=== PATIENT | male | born 1985 | race Caucasian/White ===

== ENCOUNTER 2017-12-16 10:48 | Emergency (ER) | payer SELFPAY ==
[2017-12-16] MEDS ORDERED: Ondansetron 4 MG/2 ML SDV IVPUSH ONE (11:09)
[2017-12-16] MEDS ORDERED: Ketorolac 30 MG/ML SDV IVPUSH ONE (11:09)
--- NOTE | 2017-12-16 11:34 | EDM.PDOC ---
ED HPI GENERAL MEDICAL PROBLEM - General Chief Complaint: Genitourinary Problem Stated Complaint: R) flank pain radiating to lower abd 7 out of 10 Time Seen by Provider: 12/16/17 11:20 Source of Information: Reports: Patient History Limitations: Reports: No Limitations - History of Present Illness INITIAL COMMENTS - FREE TEXT/NARRATIVE: Patient brought to ER by mother. Has had two day history of right flank pain. Developed nausea and emesis last evening which persisted overnight. No fevers/chills. No other pain complaints. No bowel movement for several days. Does not report feeling constipated. No hematuria. Has history of kidney stones but they have previously been located on left. Required surgical removal of the stones on two separate occasions. No other reported changes. Onset: Sudden Onset Date: 11/16/17 Duration: Day(s): (2), Getting Worse, Waxing/Waning Right Flank Pain Score (Numeric/FACES): 7 - Related Data Allergies Allergy/AdvReac Type Severity Reaction Status Date / Time No Known Allergies Allergy Verified 12/16/17 10:50 Home Meds: Home Meds Ketorolac Tromethamine 10 mg PO Q6HR PRN #15 tablet 12/16/17 [Rx] Tamsulosin [Tamsulosin 24 Hr] 0.4 mg PO DAILY #14 cap.er 12/16/17 [Rx] Past Medical History Gastrointestinal History: Reports: Chronic Diarrhea Genitourinary History: Reports: Renal Calculus Other Genitourinary History: due to have surgical intervention to remove kidney stones at the end of next month Psychiatric History: Reports: Other (See Below) (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 Denies use since end of 2016. History of canabis-related hyperemesis.) - Past Surgical History HEENT Surgical History: Reports: Other (See Below) Male Surgical History: Reports: Kidney Stone Extraction, Renal Calculus Social & Family History - Tobacco Use Smoking Status *Q: Current Every Day Smoker Packs/Tins Daily: 1 Smoking Cessation Information Provided To Patient: Patient Refused - Caffeine Use Caffeine Use: Reports: Coffee, Soda - Alcohol Use Alcohol Use History: Yes Alcohol Use Frequency: Socially Alcohol Use Comment: Intermittent use reported, only socially - Recreational Drug Use Recreational Drug Use: No Drug Use in Last 12 Months: Yes ED ROS GENERAL - Review of Systems Review Of Systems: See Below Constitutional: Reports: Decreased Appetite. Denies: Fever, Chills, Fatigue, Night Sweats, Diaphoresis HEENT: Reports: No Symptoms Respiratory: Reports: No Symptoms Cardiovascular: Reports: No Symptoms GI/Abdominal: Reports: Nausea, Vomiting. Denies: Abdominal Pain, Bloody Stool, Constipation, Diarrhea, Hematemesis : Reports: Flank Pain. Denies: Discharge, Dysuria, Hematuria Musculoskeletal: Reports: Back Pain (right flank) Skin: Reports: No Symptoms Neurological: Reports: No Symptoms Psychiatric: Reports: No Symptoms Hematologic/Lymphatic: Reports: No Symptoms ED EXAM, GI/ABD - Physical Exam Exam: See Below Exam Limited By: No Limitations General Appearance: Alert, WD/WN, No Apparent Distress Eyes: Bilateral: Normal Appearance, EOMI Ears: Normal External Exam Nose: No: Nasal Deformity, Nasal Swelling, Nasal Drainage Throat/Mouth: Normal Inspection, Normal Voice, No Airway Compromise Head: Atraumatic, Normocephalic Neck: Supple, Full Range of Motion Respiratory/Chest: No Respiratory Distress, Lungs Clear, Normal Breath Sounds, No Accessory Muscle Use Cardiovascular: Normal Peripheral Pulses, Regular Rate, Rhythm, No Murmur GI/Abdominal Exam: Normal Bowel Sounds, Soft, Non-Tender, No Distention, No Mass (Male) Exam: Deferred Rectal (Males) Exam: Deferred Back Exam: Normal Inspection. No: CVA Tenderness (L), CVA Tenderness (R), Decreased Range of Motion, Muscle Spasm, Paraspinal Tenderness, Vertebral Tenderness Extremities: Normal Inspection, Normal Range of Motion, Non-Tender, No Pedal Edema, Normal Capillary Refill Neurological: Alert, Oriented, Normal Cognition, Normal Gait, No Motor/Sensory Deficits Psychiatric: Normal Affect, Normal Mood Skin Exam: Warm, Dry, Intact, Normal Color Course - Vital Signs Last Recorded V/S: Last Vital Signs Temp 36.6 C 12/16/17 10:48 Pulse 94 12/16/17 10:48 Resp 18 12/16/17 10:48 BP 128/88 12/16/17 10:48 Pulse Ox 98 12/16/17 10:48 - Orders/Labs/Meds Orders: Active Orders 24 hr Category Date Time Status Abdomen Pelvis wo Cont [CT] Stat Exams 12/16/17 11:10 Taken DRUG SCREEN, URINE [URCHEM] Stat Lab 12/16/17 11:33 Ordered UA W/MICROSCOPIC [URIN] Stat Lab 12/16/17 11:29 Ordered Labs: Laboratory Tests 12/16/17 12/16/17 12/16/17 Range/Units 11:29 11:33 12:00 WBC 14.7 H (4.0-10.2) K/uL RBC 5.11 (4.33-5.41) M/uL Hgb 16.3 (13.1-16.8) g/dL Hct 46.1 (39.0-49.0) % MCV 90.2 (84.0-98.0) fL MCH 31.9 (28.2-33.3) pg MCHC 35.4 (31.7-36.0) g/dL RDW 13.6 (11.2-14.1) % Plt Count 197 (150-350) K/uL Neut % (Auto) 80.0 (45.0-80.0) % Lymph % (Auto) 9.6 L (10.0-50.0) % [place] % (Auto) 10.2 (2.0-14.0) % Eos % (Auto) 0.1 (0.0-5.0) % Baso % (Auto) 0.1 (0.0-2.0) % Neut # (Auto) 11.78 H (1.40-7.00) K/uL Lymph # (Auto) 1.41 (0.50-3.50) K/uL [facility] # (Auto) 1.50 H (0.00-1.00) K/uL Eos # (Auto) 0.02 (0.00-0.50) K/uL Baso # (Auto) 0.01 (0.00-0.20) K/uL Sodium (136-145) mmol/L Potassium (3.5-5.1) mmol/L Chloride (98-107) mmol/L Carbon Dioxide (21.0-32.0) mmol/L BUN (7-18) mg/dL Creatinine (0.51-1.17) mg/dL Est Cr Clr Drug Dosing mL/min Estimated GFR (MDRD) mL/min Glucose (74-106) mg/dL Calcium (8.5-10.1) mg/dL Total Bilirubin (0.2-1.0) mg/dL AST (15-37) U/L ALT (12-78) U/L Alkaline Phosphatase (46-116) IU/L Total Protein (6.4-8.2) g/dL Albumin (3.4-5.0) g/dL Specimen Type Urinblad Urine Color Hali Urine Appearance Cloudy Urine pH 7.0 (5.0-9.0) Ur Specific [place] 1.025 (1.005-1.030) Urine Protein 100 H (NEGATIVE) mg/dL Urine Glucose (UA) Negative (NEGATIVE) mg/dL Urine Ketones 15 H (NEGATIVE) mg/dL Urine Occult Blood Large H (NEGATIVE) Urine Nitrite Negative (NEGATIVE) Urine Bilirubin Small H (NEGATIVE) Urine Urobilinogen 0.2 (0.2-1.0) E.U./dL Ur Leukocyte Esterase Negative (NEGATIVE) Urine RBC >100 H /HPF Urine WBC 0-5 /HPF Ur Epithelial Cells Few /LPF Urine Bacteria Few (NONE TO FEW) /HPF Urine Opiates Screen Negative (NEGATIVE) Urine Methadone Screen Negative (NEGATIVE) U Acetaminophen Screen Negative (NEGATIVE) Ur Barbiturates Screen Negative (NEGATIVE) Ur Tricyclics Screen Negative (NEGATIVE) Ur Phencyclidine Scrn Negative (NEGATIVE) Ur Amphetamine Screen Negative (NEGATIVE) U Methamphetamines Scrn Negative (NEGATIVE) U Benzodiazepines Scrn Negative (NEGATIVE) U Cocaine Metab Screen Negative (NEGATIVE) U Marijuana (THC) Screen Negative (NEGATIVE) 12/16/17 Range/Units 12:00 WBC (4.0-10.2) K/uL RBC (4.33-5.41) M/uL Hgb (13.1-16.8) g/dL Hct (39.0-49.0) % MCV (84.0-98.0) fL MCH (28.2-33.3) pg MCHC (31.7-36.0) g/dL RDW (11.2-14.1) % Plt Count (150-350) K/uL Neut % (Auto) (45.0-80.0) % Lymph % (Auto) (10.0-50.0) % [place] % (Auto) (2.0-14.0) % Eos % (Auto) (0.0-5.0) % Baso % (Auto) (0.0-2.0) % Neut # (Auto) (1.40-7.00) K/uL Lymph # (Auto) (0.50-3.50) K/uL [place] # (Auto) (0.00-1.00) K/uL Eos # (Auto) (0.00-0.50) K/uL Baso # (Auto) (0.00-0.20) K/uL Sodium 139 (136-145) mmol/L Potassium 3.6 (3.5-5.1) mmol/L Chloride 102 (98-107) mmol/L Carbon Dioxide 26.5 (21.0-32.0) mmol/L BUN 17 (7-18) mg/dL Creatinine 1.50 H (0.51-1.17) mg/dL Est Cr Clr Drug Dosing 79.90 mL/min Estimated GFR (MDRD) 54 mL/min Glucose 118 H (74-106) mg/dL Calcium 8.9 (8.5-10.1) mg/dL Total Bilirubin 1.1 H (0.2-1.0) mg/dL AST 17 (15-37) U/L ALT 29 (12-78) U/L Alkaline Phosphatase 88 (46-116) IU/L Total Protein 7.6 (6.4-8.2) g/dL Albumin 3.7 (3.4-5.0) g/dL Specimen Type Urine Color Urine Appearance Urine pH (5.0-9.0) Ur Specific [place] (1.005-1.030) Urine Protein (NEGATIVE) mg/dL Urine Glucose (UA) (NEGATIVE) mg/dL Urine Ketones (NEGATIVE) mg/dL Urine Occult Blood (NEGATIVE) Urine Nitrite (NEGATIVE) Urine Bilirubin (NEGATIVE) Urine Urobilinogen (0.2-1.0) E.U./dL Ur Leukocyte Esterase (NEGATIVE) Urine RBC /HPF Urine WBC /HPF Ur Epithelial Cells /LPF Urine Bacteria (NONE TO FEW) /HPF Urine Opiates Screen (NEGATIVE) Urine Methadone Screen (NEGATIVE) U Acetaminophen Screen (NEGATIVE) Ur Barbiturates Screen (NEGATIVE) Ur Tricyclics Screen (NEGATIVE) Ur Phencyclidine Scrn (NEGATIVE) Ur Amphetamine Screen (NEGATIVE) U Methamphetamines Scrn (NEGATIVE) U Benzodiazepines Scrn (NEGATIVE) U Cocaine Metab Screen (NEGATIVE) U Marijuana (THC) Screen (NEGATIVE) Meds: Medications Discontinued Medications Generic Name Dose Route Start Last Admin Trade Name Chrisq PRN Reason Stop Dose Admin Sodium Chloride 1,000 mls @ 999 mls/hr 12/16/17 12:01 12/16/17 12:04 Normal Saline IV 12/16/17 13:01 999 mls/hr .BOLUS ONE Administration Ketorolac Tromethamine 30 mg 12/16/17 11:09 12/16/17 11:12 Toradol IVPUSH 12/16/17 11:10 30 mg ONETIME ONE Administration Ondansetron HCl 4 mg 12/16/17 11:09 12/16/17 11:12 Zofran IVPUSH 12/16/17 11:10 4 mg ONETIME ONE Administration Tamsulosin HCl 0.4 mg 12/16/17 12:00 12/16/17 12:04 Flomax PO 12/16/17 12:01 0.4 mg ONETIME ONE Administration - Re-Assessments/Exams Free Text/Narrative Re-Assessment/Exam: 12/16/17 13:11 Patient given Toradol and Zofran. Immediate improvement with pain/nausea Labs/CT requested. IV NS bolus and Flomax given. CT showed 6mm stone slightly more than half way down the right ureter. No mention of hydronephrosis per initial Radiology phone report. This is felt to be likely causing the patient's symptoms. WBC elevated. Suspect due to pain/stress. RBCs noted in UA but no WBCs. CBC/ Chem otherwise overall unremarkable. Drug screen completely negative. Plan is to send patient home with ER dispensed Toradol and Zofran. Rx for additional Toradol as well as Flomax given. Precautions reviewed with patient. He is familiar with kidney stone care/ planning. To watch for stone passage. To follow up if symptoms worsen or if stone does not pass within the next 5-10 days. Departure - Departure Time of Disposition: 13:05 Disposition: Home, Self-Care 01 Condition: Good Clinical Impression: Ureteral calculi - Discharge Information Prescriptions: Ketorolac Tromethamine 10 mg PO Q6HR PRN #15 tablet PRN Reason: Pain Tamsulosin [Tamsulosin 24 Hr] 0.4 mg PO DAILY #14 cap.er Referrals: PCP,Unknown [Primary Care Provider] - Forms: ED Department Discharge Additional Instructions: Strain urine and look for stone to pass. Take the Toradol/Flomax/Zofran as instructed. Follow up as needed if pain suddenly worsens and is not helped with medication, or if stone has not appeared to have passed within the next 5-10 days. Stay hydrated! - My Orders Last 24 Hours: My Active Orders 12/16/17 11:10 Abdomen Pelvis wo Cont [CT] Stat 12/16/17 11:29 UA W/MICROSCOPIC [URIN] Stat 12/16/17 11:33 DRUG SCREEN, URINE [URCHEM] Stat - Assessment/Plan Last 24 Hours: My Active Orders 12/16/17 11:10 Abdomen Pelvis wo Cont [CT] Stat 12/16/17 11:29 UA W/MICROSCOPIC [URIN] Stat 12/16/17 11:33 DRUG SCREEN, URINE [URCHEM] Stat
[2017-12-16] MEDS ORDERED: Tamsulosin 0.4 MG Cap.ER PO ONE (12:00)
[2017-12-16] MEDS ORDERED: Sodium Chloride 0.9% 1,000 ML IV ONE (12:01)
[2017-12-16 12:57] VITALS: BP 128/88
== END 2017-12-16 13:19 | disposition home or self-care (01) ==
LOC: LL.ED 10:48
DX: N20.2 Calculus of kidney with calculus of ureter (principal); F17.210 Nicotine dependence, cigarettes, uncomplicated; Z79.899 Other long term (current) drug therapy; Z87.442 Personal history of urinary calculi
CPT/HCPCS: 36415; 74176; 80053; 80305-QW; 81001; 85025; 96361; 96374; 96375; 99284; A9270-GY; J1885; J2405; J7030